=== PATIENT | female | born 1960 | race Caucasian/White ===

== ENCOUNTER 2020-07-28 17:12 | Inpatient (IN) | payer MEDICARE ==
[~2020-07-28] VITALS: Ht 165.1 cm; Wt 149.7 kg
[2020-07-28 17:44] LABS: BASOPHILS % 0.3 % (0.0-1.0); EOSINOPHILS # (AUTO) 0.1 (0.0-0.4); HEMATOCRIT 40.3 % (34.2-44.1); LYMPHOCYTES # (AUTO) 1.3 (1.0-3.2); LYMPHOCYTES % 14.2 % (18.0-39.1); MEAN CORPUSCULAR HEMOGLOBIN 31.6 pg (28-32); MEAN CORPUSCULAR HGB CONC 32.3 g/dL (31-35); MEAN CORPUSCULAR VOLUME 97.8 fL (81-99); MONOCYTES % 11.5 % (4.4-11.3); NEUTROPHILS # (AUTO) 6.3 (2.1-6.9); NEUTROPHILS % 72.1 % (38.7-80.0); PLATELET COUNT 198 x10e3/uL (140-360); RED BLOOD COUNT 4.12 x10e6/uL (3.6-5.1); RED CELL DISTRIBUTION WIDTH 15.5 % (11.7-14.4)
[2020-07-28] MEDS ORDERED: DEXAMETHASONE SOD PHOS 10 MG/1 ML VIAL IV ONE (18:00)
[2020-07-28 18:04] LABS: ALBUMIN 2.9 g/dL (3.5-5.0); ALBUMIN/GLOBULIN RATIO 0.7 (0.8-2.0); ANION GAP 15.9 mmol/L (8-16); CALCIUM 9.1 mg/dL (8.4-10.2); CREATININE, SERUM 0.95 mg/dL (0.57-1.11); POTASSIUM 3.9 mmol/L (3.5-5.1)
[2020-07-28] MEDS ORDERED: ACETAMINOPHEN 325 MG TAB PO ONE (18:30)
[2020-07-28] MEDS ORDERED: AZITHROMYCIN 500MG/NS 250 ML 250 ML IV STA (18:42)
[2020-07-28] MEDS ORDERED: CEFTRIAXONE SOD 1 GM/NS 50 ML 50 ML IV ONE ×2 (18:45→22:57)
[2020-07-28] MEDS ORDERED: LACTATED RINGER'S 1,000 ML INJ ONE (18:45)
[2020-07-28 22:07] LABS: CLARITY,URINE CLOUDY (CLEAR); COLOR,URINE YELLOW (YELLOW); KETONES,URINE NEGATIVE (NEGATIVE); LEUKOCYTE ESTERASE ,URINE NEGATIVE (NEGATIVE); NITRITE,URINE POSITIVE (NEGATIVE); PROTEIN,URINE DIPSTICK NEGATIVE (NEGATIVE); URINE UROBILINOGEN 0.2 mg/dL (0.2 - 1)
[2020-07-28 22:15] LABS: BACTERIA,URINE MODERATE /HPF; EPITHELIAL CELLS,URINE MODERATE /LPF
[2020-07-28] MEDS ORDERED: KETOROLAC TROMETHAMINE 30 MG/ML VIAL IV PRN (22:45)
[2020-07-28] MEDS ORDERED: AZITHROMYCIN 500MG/NS 250 ML 250 ML ONE (22:57)
[2020-07-28] MEDS ORDERED: LACTATED RINGER'S 1,000 ML ONE (22:58)
[2020-07-28] MEDS ORDERED: HYDRALAZINE HCL 20 MG/ML VIAL IV PRN (23:15)
[2020-07-28] MEDS ORDERED: ACETAMINOPHEN 325 MG TAB PO PRN (23:15)
[2020-07-28] MEDS ORDERED: BENZONATATE 100 MG CAP PO PRN (23:15)
[2020-07-28] MEDS ORDERED: DEXTROSE 50% SYRINGE 50 ML IV PRN (23:15)
[2020-07-28] MEDS ORDERED: ONDANSETRON HCL INJ 2MG/ML 2ML 2 MG/ML VIAL IV PRN (23:15)
[2020-07-29] VITALS (7 sets, daily range): BP systolic 139–180; BP diastolic 70–94
[2020-07-29 06:32] LABS: BASOPHILS % 0.3 % (0.0-1.0); HEMATOCRIT 44.2 % (34.2-44.1); HEMOGLOBIN 14.2 g/dL (12.0-16.0); LYMPHOCYTES # (AUTO) 0.9 (1.0-3.2); LYMPHOCYTES % 9.6 % (18.0-39.1); MEAN CORPUSCULAR HEMOGLOBIN 31.5 pg (28-32); MEAN CORPUSCULAR HGB CONC 32.1 g/dL (31-35); MONOCYTES # (AUTO) 0.5 (0.2-0.8); MONOCYTES % 5.2 % (4.4-11.3); NEUTROPHILS # (AUTO) 7.6 (2.1-6.9); NEUTROPHILS % 84.1 % (38.7-80.0); PLATELET COUNT 209 x10e3/uL (140-360); RED BLOOD COUNT 4.51 x10e6/uL (3.6-5.1); RED CELL DISTRIBUTION WIDTH 15.1 % (11.7-14.4)
[2020-07-29] MEDS ORDERED: HYDROCHLOROTHIA25 MG PO (06:39)
[2020-07-29] MEDS ORDERED: JARDIANCE10 MG PO (06:39)
[2020-07-29] MEDS ORDERED: METFORMIN HCL1000 MG PO (06:43)
[2020-07-29] MEDS ORDERED: TRAZODONE HCL100 MG PO (06:43)
[2020-07-29] MEDS ORDERED: PRAMIPEXOLE D0.25 MG PO (06:47)
[2020-07-29] MEDS ORDERED: METOPROLOL TART25 MG PO (06:47)
[2020-07-29] MEDS ORDERED: LEXAPRO20 MG PO (06:51)
[2020-07-29] MEDS ORDERED: LYRICA25 MG PO (06:51)
[2020-07-29] MEDS ORDERED: ATORVASTATIN CA20 MG PO (06:51)
[2020-07-29] MEDS ORDERED: ASPIRIN81 MG PO (06:56)
[2020-07-29] MEDS ORDERED: CENTURY PO (06:59)
[2020-07-29 07:01] LABS: ANION GAP 17.2 mmol/L (8-16); BLOOD UREA NITROGEN 21 mg/dL (7-26); BUN/CREATININE RATIO 23 (6-25); CALCIUM 9.4 mg/dL (8.4-10.2); CARBON DIOXIDE 26 mmol/L (22-29); CHLORIDE 98 mmol/L (98-107); CREATININE, SERUM 0.93 mg/dL (0.57-1.11); EST GLOMERULAR FILTRATION RATE > 60 ML/MIN (60-); GLUCOSE 238 mg/dL (74-118); POTASSIUM 4.2 mmol/L (3.5-5.1); SODIUM 137 mmol/L (136-145)
[2020-07-29] MEDS: INSULIN LISPRO 100 UNIT/1 ML 3ML VIAL SQ SCH ×4 (08:08→21:20)
[2020-07-29] MEDS: ESCITALOPRAM OXALATE 10 MG TAB PO SCH (09:51)
[2020-07-29] MEDS: METOPROLOL TARTRATE 25 MG TAB PO SCH ×2 (09:51→18:30)
[2020-07-29] MEDS: AZITHROMYCIN 500MG/NS 250 ML 250 ML IV SCH (09:51)
[2020-07-29] MEDS: POTASSIUM CHLORIDE 10MEQ EA PO SCH (09:51)
[2020-07-29] MEDS: FUROSEMIDE INJ 10 MG/ML 4 ML VIAL IV SCH (09:51)
[2020-07-29] MEDS: ASPIRIN 81 MG CHEW TAB PO SCH (09:51)
[2020-07-29] MEDS: MULTIVITAMINS/MINERALS TAB PO SCH (09:52)
[2020-07-29] MEDS ORDERED: SODIUM CHLORIDE 0.9% 250ML 250 ML ONE (10:22)
[2020-07-29] MEDS: CEFTRIAXONE SOD 1 GM/NS 50 ML 50 ML IV SCH (15:02)
[2020-07-29] MEDS: LISINOPRIL 20 MG TAB PO SCH (15:02)
[2020-07-29] MEDS: NON-FORMULARY MEDICATION (Metformin Hcl 1,000 MG) PO SCH (16:31)
[2020-07-29] MEDS: PREGABALIN 25 MG CAP PO SCH (18:30)
[2020-07-29] MEDS: PRAMIPEXOLE DIHYDROCHLORIDE 0.25 MG TAB PO SCH (21:40)
[2020-07-29] MEDS: ATORVASTATIN 20 MG TAB PO SCH (21:40)
[2020-07-30] VITALS (9 sets, daily range): BP systolic 109–167; BP diastolic 48–86
[2020-07-30] MEDS: TRAZODONE HCL 50 MG TAB PO PRN ×2 (01:06→23:00)
[2020-07-30 06:22] LABS: BASOPHILS % 0.4 % (0.0-1.0); EOSINOPHILS # (AUTO) 0.1 (0.0-0.4); HEMATOCRIT 45.7 % (34.2-44.1); HEMOGLOBIN 14.8 g/dL (12.0-16.0); LYMPHOCYTES # (AUTO) 1.5 (1.0-3.2); LYMPHOCYTES % 15.8 % (18.0-39.1); MEAN CORPUSCULAR HEMOGLOBIN 31.7 pg (28-32); MEAN CORPUSCULAR HGB CONC 32.4 g/dL (31-35); MEAN CORPUSCULAR VOLUME 97.9 fL (81-99); MONOCYTES # (AUTO) 0.9 (0.2-0.8); MONOCYTES % 8.9 % (4.4-11.3); NEUTROPHILS % 72.8 % (38.7-80.0); PLATELET COUNT 264 x10e3/uL (140-360); RED BLOOD COUNT 4.67 x10e6/uL (3.6-5.1); RED CELL DISTRIBUTION WIDTH 15.2 % (11.7-14.4)
[2020-07-30 07:15] LABS: ANION GAP 16.2 mmol/L (8-16); CALCIUM 9.8 mg/dL (8.4-10.2); CREATININE, SERUM 1.08 mg/dL (0.57-1.11); POTASSIUM 4.2 mmol/L (3.5-5.1)
[2020-07-30] MEDS: NON-FORMULARY MEDICATION (Metformin Hcl 1,000 MG) PO SCH ×2 (08:00→16:54)
[2020-07-30] MEDS: INSULIN LISPRO 100 UNIT/1 ML 3ML VIAL SQ SCH ×4 (08:25→20:41)
[2020-07-30] MEDS: PREGABALIN 25 MG CAP PO SCH ×2 (09:00→16:54)
[2020-07-30] MEDS: AZITHROMYCIN 500MG/NS 250 ML 250 ML IV SCH (09:17)
[2020-07-30] MEDS: ASPIRIN 81 MG CHEW TAB PO SCH (09:22)
[2020-07-30] MEDS: ESCITALOPRAM OXALATE 10 MG TAB PO SCH (09:23)
[2020-07-30] MEDS: POTASSIUM CHLORIDE 10MEQ EA PO SCH (09:23)
[2020-07-30] MEDS: MULTIVITAMINS/MINERALS TAB PO SCH (09:24)
[2020-07-30] MEDS: LISINOPRIL 20 MG TAB PO SCH (09:24)
[2020-07-30] MEDS: METOPROLOL TARTRATE 25 MG TAB PO SCH ×2 (09:24→16:54)
[2020-07-30] MEDS: FUROSEMIDE INJ 10 MG/ML 4 ML VIAL IV SCH (09:26)
[2020-07-30] MEDS ORDERED: INSULIN GLARGINE 100 UNITS/ML VIAL SQ ONE (11:15)
[2020-07-30] MEDS: CEFTRIAXONE SOD 1 GM/NS 50 ML 50 ML IV SCH (12:18)
[2020-07-30] MEDS: PRAMIPEXOLE DIHYDROCHLORIDE 0.25 MG TAB PO SCH (20:38)
[2020-07-30] MEDS: ATORVASTATIN 20 MG TAB PO SCH (20:38)
[2020-07-31 04:57] VITALS: BP 140/68
[2020-07-31] MEDS: AZITHROMYCIN 500MG/NS 250 ML 250 ML IV SCH (07:00)
[2020-07-31] MEDS ORDERED: INSULIN GLARGINE 100 UNITS/ML VIAL SQ SCH (07:30)
[2020-07-31] MEDS: NON-FORMULARY MEDICATION (Metformin Hcl 1,000 MG) PO SCH (08:00)
[2020-07-31] MEDS: CEFTRIAXONE SOD 1 GM/NS 50 ML 50 ML IV SCH (08:00)
[2020-07-31 08:16] VITALS: BP 135/48
[2020-07-31] MEDS: LISINOPRIL 20 MG TAB PO SCH (09:00)
[2020-07-31] MEDS: METOPROLOL TARTRATE 25 MG TAB PO SCH (09:00)
[2020-07-31] MEDS: FUROSEMIDE INJ 10 MG/ML 4 ML VIAL IV SCH (09:00)
[2020-07-31 09:04] VITALS: BP 135/48
[2020-07-31] MEDS: ASPIRIN 81 MG CHEW TAB PO SCH (09:23)
[2020-07-31] MEDS: MULTIVITAMINS/MINERALS TAB PO SCH (09:24)
[2020-07-31] MEDS: PREGABALIN 25 MG CAP PO SCH (09:24)
[2020-07-31] MEDS: ESCITALOPRAM OXALATE 10 MG TAB PO SCH (09:25)
[2020-07-31] MEDS: POTASSIUM CHLORIDE 10MEQ EA PO SCH (09:26)
[2020-07-31] MEDS ORDERED: LASIX40 MG PO (09:49)
[2020-07-31] MEDS ORDERED: AUGMENTIN 875-1 EACH PO (09:50)
[2020-07-31] MEDS ORDERED: POTASSIUM99 M1 (09:52)
[2020-07-31] MEDS ORDERED: K DUR10 MEQ PO (09:52)
[2020-07-31] MEDS ORDERED: TESSALON PERLE100 MG PO (09:55)
[2020-07-31] MEDS ORDERED: ONDANSETRON2 MG/1 ML PO (09:55)
[2020-07-31] MEDS: INSULIN LISPRO 100 UNIT/1 ML 3ML VIAL SQ SCH (11:04)
== END 2020-07-31 10:30 | disposition home or self-care (01) | DRG 291 ==
LOC: EDBD 17:17 → ER 17:17 → ERHOLD 20:00 → MED/SURG3 07-29 01:37
PROVIDERS: ADMIT Internal Medicine; ATTEND Internal Medicine
DX: I11.0 Hypertensive heart disease with heart failure (principal); J15.9 Unspecified bacterial pneumonia; Z68.43 Body mass index [BMI] 50.0-59.9, adult; J84.9 Interstitial pulmonary disease, unspecified; I50.33 Acute on chronic diastolic (congestive) heart failure; E66.01 Morbid (severe) obesity due to excess calories; E78.5 Hyperlipidemia, unspecified; E11.40 Type 2 diabetes mellitus with diabetic neuropathy, unspecified; F41.9 Anxiety disorder, unspecified; F32.9 Major depressive disorder, single episode, unspecified; G47.33 Obstructive sleep apnea (adult) (pediatric); Z20.822 Contact with and (suspected) exposure to COVID-19; R60.0 Localized edema; I35.8 Other nonrheumatic aortic valve disorders; Z79.4 Long term (current) use of insulin
CPT/HCPCS: 36415; 70450; 71045; 71250; 80048; 80053; 81001; 82948; 83605; 83880; 84443; 84484; 85025; 87040; 87400; 93005; 93306; 96360; 99284; J0456; J0696; J1100; J1815; J1940; J7050; J7121; U0002

== ENCOUNTER → 2020-11-16 | Outpatient (CLI) | payer MEDICARE ==
[~2020-11-16] MED LIST: ASPIRIN81 MG PO; ATORVASTATIN CA20 MG PO; AUGMENTIN 875-1 EACH PO; CENTURY PO; HYDROCHLOROTHIA25 MG PO; JARDIANCE10 MG PO; K DUR10 MEQ PO; LASIX40 MG PO; LEXAPRO20 MG PO; LYRICA25 MG PO; METFORMIN HCL1000 MG PO; METOPROLOL TART25 MG PO; ONDANSETRON2 MG/1 ML PO; POTASSIUM99 M1; PRAMIPEXOLE D0.25 MG PO; TESSALON PERLE100 MG PO; TRAZODONE HCL100 MG PO
== END ==
LOC: MAMMO 12:48
PROVIDERS: ATTEND Internal Medicine
DX: Z12.31 Encounter for screening mammogram for malignant neoplasm of breast (principal); M81.0 Age-related osteoporosis without current pathological fracture
CPT/HCPCS: 77067; 77080

== ENCOUNTER 2021-07-05 19:53 | Emergency (ER) | payer MEDICARE ==
[~2021-07-05] VITALS: Ht 165.1 cm; Wt 149.7 kg
[2021-07-05] MEDS ORDERED: SODIUM CHLORIDE 0.9% 1000ML 1,000 ML IV STA (20:04)
[2021-07-05 20:18] LABS: BASOPHILS # (AUTO) 0.1 (0.0-0.1); BASOPHILS % 0.8 % (0.0-1.0); EOSINOPHILS # (AUTO) 0.1 (0.0-0.4); EOSINOPHILS % 1.6 % (0.0-6.0); HEMATOCRIT 46.9 % (34.2-44.1); HEMOGLOBIN 14.8 g/dL (12.0-16.0); LYMPHOCYTES # (AUTO) 1.4 (1.0-3.2); LYMPHOCYTES % 21.5 % (18.0-39.1); MEAN CORPUSCULAR HEMOGLOBIN 31.5 pg (28-32); MEAN CORPUSCULAR HGB CONC 31.6 g/dL (31-35); MEAN CORPUSCULAR VOLUME 99.8 fL (81-99); MONOCYTES # (AUTO) 0.9 (0.2-0.8); MONOCYTES % 13.4 % (4.4-11.3); NEUTROPHILS % 62.1 % (38.7-80.0); PLATELET COUNT 154 x10e3/uL (140-360); RED CELL DISTRIBUTION WIDTH 14.9 % (11.7-14.4)
[2021-07-05 20:34] LABS: ALBUMIN 3.8 g/dL (3.5-5.0); ALBUMIN/GLOBULIN RATIO 0.9 (0.8-2.0); ANION GAP 17.8 mmol/L (8-16); CALCIUM 9.4 mg/dL (8.4-10.2); CREATININE, SERUM 1.36 mg/dL (0.57-1.11); POTASSIUM 4.8 mmol/L (3.5-5.1)
[2021-07-05 20:50] LABS: CREATINE KINASE MB 3.1 ng/mL (0-5.0)
[2021-07-05] MEDS ORDERED: INSULIN REGULAR, HUMAN 100 UNIT/1 ML IV STA (21:06)
[2021-07-05] MEDS ORDERED: ACETAMINOPHEN 325 MG TAB PO ONE (21:30)
[2021-07-05 22:19] LABS: CLARITY,URINE CLEAR (CLEAR); COLOR,URINE YELLOW (YELLOW); KETONES,URINE NEGATIVE (NEGATIVE); LEUKOCYTE ESTERASE ,URINE NEGATIVE (NEGATIVE); NITRITE,URINE NEGATIVE (NEGATIVE); PROTEIN,URINE DIPSTICK NEGATIVE (NEGATIVE); URINE UROBILINOGEN 0.2 mg/dL (0.2 - 1)
[2021-07-05 23:31] VITALS: BP 129/84
== END 2021-07-05 23:36 | disposition home or self-care (01) ==
LOC: ER 19:57
DX: E11.65 Type 2 diabetes mellitus with hyperglycemia (principal); E11.40 Type 2 diabetes mellitus with diabetic neuropathy, unspecified; I10 Essential (primary) hypertension; E78.5 Hyperlipidemia, unspecified; E66.01 Morbid (severe) obesity due to excess calories
CPT/HCPCS: 36415; 80053; 81001; 82550; 82553; 82948; 84484; 85025; 93005; 99284; J1817; J7030

== ENCOUNTER 2021-11-04 18:49 | Emergency (ER) | payer MEDICARE ==
[~2021-11-04] VITALS: Ht 165.1 cm; Wt 149.7 kg
[2021-11-04 19:43] LABS: BASOPHILS % 0.7 % (0.0-1.0); EOSINOPHILS # (AUTO) 0.1 (0.0-0.4); EOSINOPHILS % 1.5 % (0.0-6.0); HEMATOCRIT 44.8 % (34.2-44.1); LYMPHOCYTES # (AUTO) 1.3 (1.0-3.2); LYMPHOCYTES % 22.2 % (18.0-39.1); MEAN CORPUSCULAR HGB CONC 33.5 g/dL (31-35); MEAN CORPUSCULAR VOLUME 98.7 fL (81-99); MONOCYTES # (AUTO) 0.8 (0.2-0.8); MONOCYTES % 13.2 % (4.4-11.3); NEUTROPHILS # (AUTO) 3.7 (2.1-6.9); NEUTROPHILS % 61.4 % (38.7-80.0); PLATELET COUNT 173 x10e3/uL (140-360); RED BLOOD COUNT 4.54 x10e6/uL (3.6-5.1)
[2021-11-04] MEDS ORDERED: Vancomycin IV 1 GM in SODIUM CHLORIDE 0.9% 250ML 250 ML IV ONE (20:00)
[2021-11-04 20:05] LABS: ALBUMIN 3.3 g/dL (3.5-5.0); ALBUMIN/GLOBULIN RATIO 0.7 (0.8-2.0); ANION GAP 16.9 mmol/L (8-16); CALCIUM 9.5 mg/dL (8.4-10.2); CREATININE, SERUM 1.16 mg/dL (0.57-1.11); POTASSIUM 3.9 mmol/L (3.5-5.1)
[2021-11-04] MEDS ORDERED: CLEOCIN HCL300 MG PO (20:06)
[2021-11-04] MEDS ORDERED: CEFEPIME 1 GM in SODIUM CHLORIDE 0.9% 50ML 50 ML IV SCH (21:00)
[2021-11-04] MEDS ORDERED: ONDANSETRON HCL INJ 2MG/ML 2ML 2 MG/ML VIAL IV STA (21:13)
[2021-11-04 21:57] VITALS: BP 121/64
== END 2021-11-04 21:47 | disposition home or self-care (01) ==
LOC: ER 18:58
DX: L03.116 Cellulitis of left lower limb (principal); I89.0 Lymphedema, not elsewhere classified; E11.65 Type 2 diabetes mellitus with hyperglycemia; I10 Essential (primary) hypertension; E78.5 Hyperlipidemia, unspecified; E66.01 Morbid (severe) obesity due to excess calories
CPT/HCPCS: 36415; 80053; 85025; 87040; 99283; J0692; J2405; J3370; J7050

== ENCOUNTER 2021-12-27 19:13 | Emergency (ER) | payer MEDICARE ==
[~2021-12-27] VITALS: Ht 165.1 cm; Wt 149.7 kg
[~2021-12-27 19:13] MED LIST changes: +CLEOCIN HCL300 MG PO
[2021-12-27 19:41] LABS: BASOPHILS # (AUTO) 0.1 (0.0-0.1); BASOPHILS % 0.8 % (0.0-1.0); EOSINOPHILS # (AUTO) 0.1 (0.0-0.4); EOSINOPHILS % 2.3 % (0.0-6.0); HEMATOCRIT 43.7 % (34.2-44.1); HEMOGLOBIN 14.1 g/dL (12.0-16.0); LYMPHOCYTES # (AUTO) 0.9 (1.0-3.2); LYMPHOCYTES % 15.2 % (18.0-39.1); MEAN CORPUSCULAR HEMOGLOBIN 32.3 pg (28-32); MEAN CORPUSCULAR HGB CONC 32.3 g/dL (31-35); MONOCYTES # (AUTO) 0.9 (0.2-0.8); MONOCYTES % 14.3 % (4.4-11.3); NEUTROPHILS # (AUTO) 4.1 (2.1-6.9); NEUTROPHILS % 66.7 % (38.7-80.0); PLATELET COUNT 159 x10e3/uL (140-360); RED BLOOD COUNT 4.37 x10e6/uL (3.6-5.1); RED CELL DISTRIBUTION WIDTH 14.9 % (11.7-14.4)
[2021-12-27 20:01] LABS: ALBUMIN 3.1 g/dL (3.5-5.0); ALBUMIN/GLOBULIN RATIO 0.7 (0.8-2.0); ANION GAP 20.7 mmol/L (8-16); CALCIUM 9.3 mg/dL (8.4-10.2); CREATININE, SERUM 1.29 mg/dL (0.57-1.11); POTASSIUM 3.7 mmol/L (3.5-5.1)
[2021-12-27 20:40] LABS: CLARITY,URINE CLOUDY (CLEAR); COLOR,URINE YELLOW (YELLOW); LEUKOCYTE ESTERASE ,URINE NEGATIVE (NEGATIVE)
[2021-12-27 20:41] LABS: KETONES,URINE NEGATIVE (NEGATIVE); NITRITE,URINE POSITIVE (NEGATIVE); PROTEIN,URINE DIPSTICK NEGATIVE (NEGATIVE); URINE UROBILINOGEN 0.2 mg/dL (0.2 - 1)
[2021-12-27 20:46] LABS: BACTERIA,URINE MANY /HPF; WBC,URINE (MAN) >50 /HPF (0-5)
[2021-12-27 20:47] LABS: EPITHELIAL CELLS,URINE MODERATE /LPF
[2021-12-27 21:31] VITALS: BP 141/66
== END 2021-12-27 21:34 | disposition home or self-care (01) ==
LOC: ER 20:08
DX: R41.3 Other amnesia (principal); N39.0 Urinary tract infection, site not specified; R53.1 Weakness; I89.0 Lymphedema, not elsewhere classified; Z91.81 History of falling; E11.65 Type 2 diabetes mellitus with hyperglycemia; I10 Essential (primary) hypertension; E78.5 Hyperlipidemia, unspecified; E66.01 Morbid (severe) obesity due to excess calories; R94.31 Abnormal electrocardiogram [ECG] [EKG]
CPT/HCPCS: 36415; 70450; 71045; 80053; 81001; 82550; 82553; 83880; 84484; 85025; 93005; 99284

== ENCOUNTER 2022-01-02 14:43 | Emergency (ER) | payer MEDICARE, OTHER ==
[~2022-01-02] VITALS: Ht 165.1 cm; Wt 149.7 kg
[2022-01-02] MEDS ORDERED: TETANUS/DIPHTHERIA TOX ADULT 0.5 ML SYR IM ONE (15:30)
[2022-01-02] MEDS ORDERED: ACETAMINOPHEN/CODEINE 300MG - 30MG TAB PO ONE (15:40)
[2022-01-02 18:50] VITALS: BP 137/66
== END 2022-01-02 18:58 | disposition home or self-care (01) ==
LOC: ER 14:50
DX: S80.811A Abrasion, right lower leg, initial encounter (principal); W01.0XXA Fall on same level from slipping, tripping and stumbling without subsequent striking against object, initial encounter; Y93.01 Activity, walking, marching and hiking; Y92.098 Other place in other non-institutional residence as the place of occurrence of the external cause; E11.40 Type 2 diabetes mellitus with diabetic neuropathy, unspecified; I10 Essential (primary) hypertension; E78.5 Hyperlipidemia, unspecified; E66.01 Morbid (severe) obesity due to excess calories
CPT/HCPCS: 90471; 90714; 94799; 99283

== ENCOUNTER → 2022-01-25 | Day surgery (SDC) | payer MEDICARE ==
[~2022-01-25] MED LIST changes: +OR PHACO EYE KIT ONE; +PREOP PHACO EYE KIT ONE; +TYLENOL #3 PO
[2022-01-25 13:00] VITALS: BP 135/61
== END | disposition home or self-care (01) ==
LOC: OR 08:59
PROVIDERS: ATTEND Ophthalmology
DX: H25.12 Age-related nuclear cataract, left eye (principal); G47.33 Obstructive sleep apnea (adult) (pediatric); E11.9 Type 2 diabetes mellitus without complications; I11.0 Hypertensive heart disease with heart failure; I50.9 Heart failure, unspecified; E78.5 Hyperlipidemia, unspecified; G25.81 Restless legs syndrome; R60.0 Localized edema; R41.3 Other amnesia; E66.01 Morbid (severe) obesity due to excess calories; F41.9 Anxiety disorder, unspecified; F32.A Depression, unspecified; Z88.1 Allergy status to other antibiotic agents; Z01.812 Encounter for preprocedural laboratory examination; Z20.822 Contact with and (suspected) exposure to COVID-19; Z79.82 Long term (current) use of aspirin; Z79.84 Long term (current) use of oral hypoglycemic drugs; Z79.899 Other long term (current) drug therapy; Z99.81 Dependence on supplemental oxygen; Z68.43 Body mass index [BMI] 50.0-59.9, adult; Z87.01 Personal history of pneumonia (recurrent); Z91.81 History of falling; Z87.891 Personal history of nicotine dependence
CPT/HCPCS: 0223U; 36415 ×2; 66984; 82948; V2632

== ENCOUNTER 2022-02-01 10:08 | Inpatient (IN) | payer MEDICARE ==
[~2022-02-01] VITALS: Ht 165.1 cm; Wt 151.1 kg
[2022-02-01] VITALS (9 sets, daily range): BP systolic 126–165; BP diastolic 37–130
[~2022-02-01 10:08] MED LIST changes: -OR PHACO EYE KIT ONE; -PREOP PHACO EYE KIT ONE
[2022-02-01 11:11] LABS: BASOPHILS # (AUTO) 0.1 (0.0-0.1); BASOPHILS % 0.7 % (0.0-1.0); EOSINOPHILS # (AUTO) 0.1 (0.0-0.4); EOSINOPHILS % 1.1 % (0.0-6.0); HEMATOCRIT 46.3 % (34.2-44.1); HEMOGLOBIN 14.8 g/dL (12.0-16.0); LYMPHOCYTES # (AUTO) 0.9 (1.0-3.2); LYMPHOCYTES % 11.7 % (18.0-39.1); MEAN CORPUSCULAR HEMOGLOBIN 33.4 pg (28-32); MEAN CORPUSCULAR VOLUME 104.5 fL (81-99); NEUTROPHILS # (AUTO) 5.9 (2.1-6.9); NEUTROPHILS % 73.8 % (38.7-80.0); PLATELET COUNT 205 x10e3/uL (140-360); RED BLOOD COUNT 4.43 x10e6/uL (3.6-5.1)
[2022-02-01 11:23] LABS: INR 0.85; PROTHROMBIN TIME 12.4 seconds (11.9-14.5)
[2022-02-01 11:24] LABS: PARTIAL THROMBOPLASTIN TIME 32.4 seconds (23.8-35.5)
[2022-02-01] MEDS ORDERED: ONDANSETRON HCL INJ 2MG/ML 2ML 2 MG/ML VIAL IV PRN ×2 (11:30→15:15)
[2022-02-01] MEDS ORDERED: ACETAMINOPHEN 325 MG TAB PO ONE (11:30)
[2022-02-01 11:34] LABS: ALBUMIN 3.1 g/dL (3.5-5.0); ALBUMIN/GLOBULIN RATIO 0.5 (0.8-2.0); ANION GAP 22.3 mmol/L (8-16); CALCIUM 9.5 mg/dL (8.4-10.2); POTASSIUM 4.3 mmol/L (3.5-5.1)
[2022-02-01 11:41] LABS: CREATINE KINASE MB 3.7 ng/mL (0-5.0)
[2022-02-01] MEDS ORDERED: ACETAMINOPHEN 1000 MG/100 ML IV STA (11:41)
[2022-02-01 11:58] LABS: ABG HCO3 25 mmol/L (22-26); ABG PCO2 47 mmHg (35-45); ABG PH 7.34 (7.35-7.45); ABG PO2 62 mmHg (80-105)
[2022-02-01 11:59] LABS: ABG TCO2 27
[2022-02-01] MEDS ORDERED: INSULIN REGULAR, HUMAN 100 UNIT/1 ML SQ ONE (12:00)
[2022-02-01] MEDS ORDERED: ALBUTEROL/IPRATROPIUM 3 ML NEB NEB ONE (12:15)
[2022-02-01] MEDS ORDERED: METHYLPREDNISOLONE SOD SUCC 125 MG/2ML VIAL IV SCH ×2 (12:30→21:00)
[2022-02-01 13:19] LABS: CLARITY,URINE CLOUDY (CLEAR); COLOR,URINE YELLOW (YELLOW); LEUKOCYTE ESTERASE ,URINE TRACE (NEGATIVE)
[2022-02-01 13:20] LABS: KETONES,URINE 1+ (NEGATIVE); NITRITE,URINE POSITIVE (NEGATIVE); PROTEIN,URINE DIPSTICK 1+ (NEGATIVE); URINE UROBILINOGEN 0.2 mg/dL (0.2 - 1)
[2022-02-01 13:36] LABS: BACTERIA,URINE MANY /HPF
[2022-02-01 13:37] LABS: EPITHELIAL CELLS,URINE MANY /LPF; WBC,URINE (MAN) 21-50 /HPF (0-5)
[2022-02-01] MEDS ORDERED: DEXTROSE 50% SYRINGE 50 ML IV PRN (14:45)
[2022-02-01] MEDS ORDERED: SODIUM CHLORIDE FLUSH 10 ML SYR INJ PRN (15:15)
[2022-02-01] MEDS ORDERED: FUROSEMIDE INJ 10 MG/ML 4 ML VIAL IV ONE (15:15)
[2022-02-01] MEDS ORDERED: ASPIRIN 81 MG CHEW TAB PO ONE (15:15)
[2022-02-01] MEDS: FUROSEMIDE INJ 10 MG/ML 4 ML VIAL IV SCH (15:47)
[2022-02-01] MEDS: ALBUTEROL/IPRATROPIUM 3 ML NEB NEB SCH ×3 (15:47→23:05)
[2022-02-01] MEDS: ACETAMINOPHEN 325 MG TAB PO PRN (19:39)
[2022-02-01 19:41] LABS: CREATINE KINASE MB 8.5 ng/mL (0-5.0)
[2022-02-01] MEDS: METOPROLOL TARTRATE 25 MG TAB PO SCH (19:41)
[2022-02-01] MEDS: INSULIN REGULAR, HUMAN 100 UNIT/1 ML SQ SCH ×2 (19:45→21:49)
[2022-02-01] MEDS ORDERED: HUMULIN R500 UNIT/2 (21:27)
[2022-02-01] MEDS ORDERED: TRULICITY1.5 MG/0.5 (21:27)
[2022-02-01] MEDS ORDERED: NOVOLIN N100 UNIT/1 (21:27)
[2022-02-01] MEDS ORDERED: INSULIN GLARGINE 100 UNITS/ML VIAL SQ ONE (21:30)
[2022-02-01] MEDS: ATORVASTATIN 20 MG TAB PO SCH (21:36)
[2022-02-02] VITALS (23 sets, daily range): BP systolic 80–164; BP diastolic 58–109
[2022-02-02 00:01] LABS: CREATINE KINASE MB 8.2 ng/mL (0-5.0)
[2022-02-02] MEDS: TRAZODONE HCL 50 MG TAB PO PRN ×2 (01:02→23:40)
[2022-02-02] MEDS: ACETAMINOPHEN 325 MG TAB PO PRN ×2 (01:03→08:25)
[2022-02-02] MEDS: ALBUTEROL/IPRATROPIUM 3 ML NEB NEB SCH ×6 (03:05→23:45)
[2022-02-02 05:05] LABS: BASOPHILS % 0.3 % (0.0-1.0); HEMATOCRIT 40.2 % (34.2-44.1); LYMPHOCYTES # (AUTO) 0.6 (1.0-3.2); LYMPHOCYTES % 6.8 % (18.0-39.1); MEAN CORPUSCULAR HEMOGLOBIN 36.9 pg (28-32); MEAN CORPUSCULAR HGB CONC 34.8 g/dL (31-35); MEAN CORPUSCULAR VOLUME 106.1 fL (81-99); MONOCYTES # (AUTO) 0.3 (0.2-0.8); MONOCYTES % 3.8 % (4.4-11.3); NEUTROPHILS # (AUTO) 7.8 (2.1-6.9); NEUTROPHILS % 88.4 % (38.7-80.0); PLATELET COUNT 200 x10e3/uL (140-360); RED BLOOD COUNT 3.79 x10e6/uL (3.6-5.1); RED CELL DISTRIBUTION WIDTH 17.2 % (11.7-14.4)
[2022-02-02 05:28] LABS: ANION GAP 23.5 mmol/L (8-16); CALCIUM 9.5 mg/dL (8.4-10.2); CREATININE, SERUM 1.17 mg/dL (0.57-1.11); POTASSIUM 4.5 mmol/L (3.5-5.1)
[2022-02-02] MEDS: INSULIN REGULAR, HUMAN 100 UNIT/1 ML SQ SCH ×2 (08:10→11:37)
[2022-02-02 08:44] LABS: CREATINE KINASE MB 8.4 ng/mL (0-5.0)
[2022-02-02] MEDS ORDERED: PREGABALIN 25 MG CAP PO SCH (09:00)
[2022-02-02] MEDS: ASPIRIN 81 MG CHEW TAB PO SCH (09:52)
[2022-02-02] MEDS: METOPROLOL TARTRATE 25 MG TAB PO SCH ×2 (09:53→17:28)
[2022-02-02] MEDS: FUROSEMIDE INJ 10 MG/ML 4 ML VIAL IV SCH (09:54)
[2022-02-02] MEDS ORDERED: FUROSEMIDE 40 MG TAB PO SCH (10:00)
[2022-02-02] MEDS ORDERED: HYDROCHLOROTHIAZIDE 25 MG TAB PO SCH (10:00)
[2022-02-02] MEDS: PREGABALIN 50 MG CAP PO SCH ×2 (10:26→17:27)
[2022-02-02] MEDS: ESCITALOPRAM OXALATE 10 MG TAB PO SCH (10:27)
[2022-02-02] MEDS: POTASSIUM CHLORIDE 10MEQ EA PO SCH (10:33)
[2022-02-02] MEDS ORDERED: DEXTROSE 50% SYRINGE 50 ML IV PRN (15:15)
[2022-02-02] MEDS: INSULIN LISPRO 100 UNIT/1 ML 3ML VIAL SQ SCH ×3 (17:15→21:43)
[2022-02-02] MEDS: INSULIN GLARGINE 100 UNITS/ML VIAL SQ SCH (17:22)
[2022-02-02] MEDS ORDERED: PRAMIPEXOLE DIHYDROCHLORIDE 0.25 MG TAB PO SCH (21:00)
[2022-02-02] MEDS: MAGNESIUM HYDROXIDE 30 ML UDC PO PRN (21:00)
[2022-02-02] MEDS: ATORVASTATIN 20 MG TAB PO SCH (21:19)
[2022-02-02] MEDS: METHYLPREDNISOLONE SOD SUCC 40 MG/ML VIAL 1ML IV SCH (21:19)
[2022-02-02] MEDS: PRAMIPEXOLE DIHYDROCHLORIDE 1 MG TAB PO SCH (21:29)
[2022-02-03] VITALS (24 sets, daily range): BP systolic 112–173; BP diastolic 55–130
[2022-02-03] MEDS: ALBUTEROL/IPRATROPIUM 3 ML NEB NEB SCH ×6 (02:35→23:20)
[2022-02-03] MEDS: ACETAMINOPHEN/CODEINE 300MG - 30MG TAB PO PRN (04:27)
[2022-02-03] MEDS: EMPAGLIFLOZIN 10 MG TABLET PO SCH (06:08)
[2022-02-03] MEDS: INSULIN LISPRO 100 UNIT/1 ML 3ML VIAL SQ SCH ×7 (07:35→21:27)
[2022-02-03] MEDS: INSULIN GLARGINE 100 UNITS/ML VIAL SQ SCH ×2 (07:36→16:19)
[2022-02-03] MEDS: METHYLPREDNISOLONE SOD SUCC 40 MG/ML VIAL 1ML IV SCH (08:30)
[2022-02-03] MEDS: FUROSEMIDE INJ 10 MG/ML 4 ML VIAL IV SCH (08:30)
[2022-02-03] MEDS: POTASSIUM CHLORIDE 10MEQ EA PO SCH (08:31)
[2022-02-03] MEDS: ESCITALOPRAM OXALATE 10 MG TAB PO SCH (08:31)
[2022-02-03] MEDS: PREGABALIN 50 MG CAP PO SCH ×2 (08:31→16:16)
[2022-02-03] MEDS: ASPIRIN 81 MG CHEW TAB PO SCH (08:32)
[2022-02-03] MEDS: METOPROLOL TARTRATE 25 MG TAB PO SCH ×2 (08:32→16:17)
[2022-02-03 11:28] LABS: BASOPHILS % 0.2 % (0.0-1.0); HEMATOCRIT 41.2 % (34.2-44.1); HEMOGLOBIN 13.4 g/dL (12.0-16.0); LYMPHOCYTES # (AUTO) 0.5 (1.0-3.2); LYMPHOCYTES % 4.1 % (18.0-39.1); MEAN CORPUSCULAR HEMOGLOBIN 32.5 pg (28-32); MEAN CORPUSCULAR HGB CONC 32.5 g/dL (31-35); MONOCYTES # (AUTO) 0.7 (0.2-0.8); MONOCYTES % 5.9 % (4.4-11.3); NEUTROPHILS # (AUTO) 10.3 (2.1-6.9); NEUTROPHILS % 88.9 % (38.7-80.0); PLATELET COUNT 228 x10e3/uL (140-360); RED BLOOD COUNT 4.12 x10e6/uL (3.6-5.1)
[2022-02-03] MEDS: MAGNESIUM HYDROXIDE 30 ML UDC PO PRN (11:29)
[2022-02-03 11:53] LABS: ALBUMIN 2.6 g/dL (3.5-5.0); ALBUMIN/GLOBULIN RATIO 0.5 (0.8-2.0); ANION GAP 21.2 mmol/L (8-16); CALCIUM 9.1 mg/dL (8.4-10.2); CREATININE, SERUM 1.05 mg/dL (0.57-1.11); POTASSIUM 5.2 mmol/L (3.5-5.1)
[2022-02-03] MEDS: PRAMIPEXOLE DIHYDROCHLORIDE 1 MG TAB PO SCH (21:24)
[2022-02-03] MEDS: TRAZODONE HCL 50 MG TAB PO PRN (21:24)
[2022-02-03] MEDS: ATORVASTATIN 20 MG TAB PO SCH (21:26)
[2022-02-04] VITALS (15 sets, daily range): BP systolic 84–156; BP diastolic 50–74
[2022-02-04] MEDS: ALBUTEROL/IPRATROPIUM 3 ML NEB NEB SCH ×6 (03:15→23:45)
[2022-02-04] MEDS: EMPAGLIFLOZIN 10 MG TABLET PO SCH (06:19)
[2022-02-04 07:08] LABS: BASOPHILS % 0.1 % (0.0-1.0); EOSINOPHILS % 0.2 % (0.0-6.0); HEMATOCRIT 41.5 % (34.2-44.1); HEMOGLOBIN 13.3 g/dL (12.0-16.0); LYMPHOCYTES # (AUTO) 0.8 (1.0-3.2); MEAN CORPUSCULAR HEMOGLOBIN 31.9 pg (28-32); MEAN CORPUSCULAR VOLUME 99.5 fL (81-99); MONOCYTES # (AUTO) 0.8 (0.2-0.8); MONOCYTES % 9.1 % (4.4-11.3); NEUTROPHILS # (AUTO) 7.5 (2.1-6.9); NEUTROPHILS % 81.1 % (38.7-80.0); PLATELET COUNT 206 x10e3/uL (140-360); RED BLOOD COUNT 4.17 x10e6/uL (3.6-5.1)
[2022-02-04 07:33] LABS: ALBUMIN 2.8 g/dL (3.5-5.0); ALBUMIN/GLOBULIN RATIO 0.6 (0.8-2.0); ANION GAP 16.3 mmol/L (8-16); CALCIUM 9.5 mg/dL (8.4-10.2); CREATININE, SERUM 0.87 mg/dL (0.57-1.11); POTASSIUM 4.3 mmol/L (3.5-5.1)
[2022-02-04] MEDS: PREGABALIN 50 MG CAP PO SCH ×2 (08:38→16:50)
[2022-02-04] MEDS: ESCITALOPRAM OXALATE 10 MG TAB PO SCH (08:38)
[2022-02-04] MEDS: ASPIRIN 81 MG CHEW TAB PO SCH (08:39)
[2022-02-04] MEDS: POTASSIUM CHLORIDE 10MEQ EA PO SCH (08:40)
[2022-02-04] MEDS: FUROSEMIDE INJ 10 MG/ML 4 ML VIAL IV SCH (08:40)
[2022-02-04] MEDS: METHYLPREDNISOLONE SOD SUCC 40 MG/ML VIAL 1ML IV SCH (08:41)
[2022-02-04] MEDS: INSULIN LISPRO 100 UNIT/1 ML 3ML VIAL SQ SCH ×7 (08:44→21:24)
[2022-02-04] MEDS: INSULIN GLARGINE 100 UNITS/ML VIAL SQ SCH ×2 (08:46→17:21)
[2022-02-04] MEDS: ACETAMINOPHEN/CODEINE 300MG - 30MG TAB PO PRN (09:00)
[2022-02-04] MEDS: METOPROLOL TARTRATE 25 MG TAB PO SCH ×2 (09:52→16:50)
[2022-02-04] MEDS ORDERED: INSULIN LISPRO 100 UNIT/1 ML 3ML VIAL SQ ONE (11:45)
[2022-02-04] MEDS: ATORVASTATIN 20 MG TAB PO SCH (21:10)
[2022-02-04] MEDS: PRAMIPEXOLE DIHYDROCHLORIDE 1 MG TAB PO SCH (21:10)
[2022-02-04] MEDS: TRAZODONE HCL 50 MG TAB PO PRN (21:16)
[2022-02-05] VITALS (8 sets, daily range): BP systolic 95–160; BP diastolic 60–75
[2022-02-05] MEDS: ALBUTEROL/IPRATROPIUM 3 ML NEB NEB SCH ×6 (03:45→23:40)
[2022-02-05] MEDS: EMPAGLIFLOZIN 10 MG TABLET PO SCH (06:18)
[2022-02-05] MEDS: ACETAMINOPHEN/CODEINE 300MG - 30MG TAB PO PRN (06:19)
[2022-02-05] MEDS: INSULIN GLARGINE 100 UNITS/ML VIAL SQ SCH ×2 (08:30→16:38)
[2022-02-05] MEDS: INSULIN LISPRO 100 UNIT/1 ML 3ML VIAL SQ SCH ×7 (08:30→20:12)
[2022-02-05] MEDS: METHYLPREDNISOLONE SOD SUCC 40 MG/ML VIAL 1ML IV SCH (08:59)
[2022-02-05] MEDS: PREGABALIN 50 MG CAP PO SCH ×2 (09:00→16:28)
[2022-02-05] MEDS: ESCITALOPRAM OXALATE 10 MG TAB PO SCH (09:00)
[2022-02-05] MEDS: FUROSEMIDE INJ 10 MG/ML 4 ML VIAL IV SCH (09:01)
[2022-02-05] MEDS: METOPROLOL TARTRATE 25 MG TAB PO SCH ×2 (09:01→16:28)
[2022-02-05] MEDS: ASPIRIN 81 MG CHEW TAB PO SCH (09:10)
[2022-02-05] MEDS: POTASSIUM CHLORIDE 10MEQ EA PO SCH (09:10)
[2022-02-05] MEDS: AZITHROMYCIN 250 MG TAB PO SCH (09:10)
[2022-02-05] MEDS: MAGNESIUM HYDROXIDE 30 ML UDC PO PRN (16:23)
[2022-02-05] MEDS: PRAMIPEXOLE DIHYDROCHLORIDE 1 MG TAB PO SCH (20:08)
[2022-02-05] MEDS: ATORVASTATIN 20 MG TAB PO SCH (20:08)
[2022-02-05] MEDS: TRAZODONE HCL 50 MG TAB PO PRN (20:17)
[2022-02-06 00:20] VITALS: BP 145/68
[2022-02-06] MEDS: ALBUTEROL/IPRATROPIUM 3 ML NEB NEB SCH ×2 (03:30→07:00)
[2022-02-06 04:00] VITALS: BP 154/76
[2022-02-06] MEDS: EMPAGLIFLOZIN 10 MG TABLET PO SCH (05:54)
[2022-02-06] MEDS: ACETAMINOPHEN/CODEINE 300MG - 30MG TAB PO PRN (05:57)
[2022-02-06 08:00] VITALS: BP 142/73
[2022-02-06 08:23] VITALS: BP 154/76
[2022-02-06] MEDS: ESCITALOPRAM OXALATE 10 MG TAB PO SCH (09:48)
[2022-02-06] MEDS: INSULIN LISPRO 100 UNIT/1 ML 3ML VIAL SQ SCH (09:48)
[2022-02-06] MEDS: FUROSEMIDE INJ 10 MG/ML 4 ML VIAL IV SCH (09:48)
[2022-02-06] MEDS: PREGABALIN 50 MG CAP PO SCH (09:49)
[2022-02-06] MEDS: POTASSIUM CHLORIDE 10MEQ EA PO SCH (09:49)
[2022-02-06] MEDS: METOPROLOL TARTRATE 25 MG TAB PO SCH (09:50)
[2022-02-06] MEDS: ASPIRIN 81 MG CHEW TAB PO SCH (09:50)
[2022-02-06] MEDS: AZITHROMYCIN 250 MG TAB PO SCH (09:50)
[2022-02-06] MEDS ORDERED: INSULIN LISPRO 100 UNIT/1 ML 3ML VIAL SQ SCH (11:30)
[2022-02-06 11:52] VITALS: BP 151/75
[2022-02-06] MEDS ORDERED: INSULIN GLARGINE 100 UNITS/ML VIAL SQ SCH (16:30)
[2022-02-07] MEDS ORDERED: METHYLPREDNISOLONE SOD SUCC 40 MG/ML VIAL 1ML IV SCH (09:00)
== END 2022-02-06 12:35 | disposition home or self-care (01) | DRG 871 ==
LOC: ER 10:36 → ERHOLD 15:12 → ICU 16:30 → MED/SURG2 02-04 12:17
PROVIDERS: ADMIT Internal Medicine; ATTEND Internal Medicine
PROC: 3E03329 Introduction of Other Anti-infective into Peripheral Vein, Percutaneous Approach (ICD-10-PCS; principal; 2022-02-01)
PROC: 5A09357 Assistance with Respiratory Ventilation, Less than 24 Consecutive Hours, Continuous Positive Airway Pressure (ICD-10-PCS; 2022-02-01)
PROC: 5A09357 Assistance with Respiratory Ventilation, Less than 24 Consecutive Hours, Continuous Positive Airway Pressure (ICD-10-PCS; 2022-02-03)
PROC: 5A09357 Assistance with Respiratory Ventilation, Less than 24 Consecutive Hours, Continuous Positive Airway Pressure (ICD-10-PCS; 2022-02-04)
DX: A41.9 Sepsis, unspecified organism (principal); I21.A1 Myocardial infarction type 2; I50.33 Acute on chronic diastolic (congestive) heart failure; J96.21 Acute and chronic respiratory failure with hypoxia; J44.1 Chronic obstructive pulmonary disease with (acute) exacerbation; N39.0 Urinary tract infection, site not specified; E87.2 Acidosis; Z68.43 Body mass index [BMI] 50.0-59.9, adult; I13.0 Hypertensive heart and chronic kidney disease with heart failure and stage 1 through stage 4 chronic kidney disease, or unspecified chronic kidney disease; Z99.81 Dependence on supplemental oxygen; E11.22 Type 2 diabetes mellitus with diabetic chronic kidney disease; E11.42 Type 2 diabetes mellitus with diabetic polyneuropathy; E66.01 Morbid (severe) obesity due to excess calories; B96.1 Klebsiella pneumoniae [K. pneumoniae] as the cause of diseases classified elsewhere; E11.65 Type 2 diabetes mellitus with hyperglycemia; Z88.2 Allergy status to sulfonamides; Z88.8 Allergy status to other drugs, medicaments and biological substances; N18.9 Chronic kidney disease, unspecified; G47.33 Obstructive sleep apnea (adult) (pediatric); G25.81 Restless legs syndrome; Z98.49 Cataract extraction status, unspecified eye; E78.5 Hyperlipidemia, unspecified; W01.0XXA Fall on same level from slipping, tripping and stumbling without subsequent striking against object, initial encounter; Y92.019 Unspecified place in single-family (private) house as the place of occurrence of the external cause; I35.0 Nonrheumatic aortic (valve) stenosis; Z79.82 Long term (current) use of aspirin; Z20.822 Contact with and (suspected) exposure to COVID-19; Z79.4 Long term (current) use of insulin; Z79.84 Long term (current) use of oral hypoglycemic drugs
CPT/HCPCS: 36415; 70450; 71045; 80048; 80053; 81001; 82550; 82553; 82805; 82948; 83036; 83605; 83880; 84443; 84484; 85025; 85610; 85730; 87040; 87086; 87186; 93005; 93306; 94640; 94660; 94799; 96372; 97139; 99251; 99284; J0456; J0696; J1815; J1817; J1940; J2405; J2920; J2930; J7050

== ENCOUNTER → 2022-02-22 | Day surgery (SDC) | payer MEDICARE ==
[~2022-02-22] MED LIST changes: +FENTANYL CITRATE/PF 100MCG/2 ML INJ ONE; +HUMULIN R500 UNIT/2; +INSULIN REGULAR, HUMAN 100 UNIT/1 ML ONE; +MIDAZOLAM HCL 2 MG/2 ML VIAL ONE; +NOVOLIN N100 UNIT/1; +OR PHACO EYE KIT ONE; +PREOP PHACO EYE KIT ONE; +TRULICITY1.5 MG/0.5
[2022-02-22 13:30] VITALS: BP 116/63
== END | disposition home or self-care (01) ==
LOC: OR 09:07
PROVIDERS: ATTEND Ophthalmology
DX: H25.11 Age-related nuclear cataract, right eye (principal); G47.33 Obstructive sleep apnea (adult) (pediatric); E11.9 Type 2 diabetes mellitus without complications; I10 Essential (primary) hypertension; G62.9 Polyneuropathy, unspecified; F41.9 Anxiety disorder, unspecified; Z88.1 Allergy status to other antibiotic agents; Z01.812 Encounter for preprocedural laboratory examination; Z20.822 Contact with and (suspected) exposure to COVID-19; Z79.82 Long term (current) use of aspirin; Z79.84 Long term (current) use of oral hypoglycemic drugs; Z79.899 Other long term (current) drug therapy
CPT/HCPCS: 0223U; 36415 ×2; 66984; 82948; J2250; J3010; V2632; J1817

== ENCOUNTER 2022-02-23 17:18 | Emergency (ER) | payer MEDICARE ==
[~2022-02-23] VITALS: Ht 165.1 cm; Wt 151.0 kg
[~2022-02-23 17:18] MED LIST changes: -FENTANYL CITRATE/PF 100MCG/2 ML INJ ONE; -INSULIN REGULAR, HUMAN 100 UNIT/1 ML ONE; -MIDAZOLAM HCL 2 MG/2 ML VIAL ONE; -OR PHACO EYE KIT ONE; -PREOP PHACO EYE KIT ONE
== END 2022-02-23 22:26 | disposition home or self-care (01) ==
LOC: ER 18:07
DX: E11.40 Type 2 diabetes mellitus with diabetic neuropathy, unspecified (principal); I10 Essential (primary) hypertension; J44.9 Chronic obstructive pulmonary disease, unspecified; I50.9 Heart failure, unspecified; E78.5 Hyperlipidemia, unspecified; E66.01 Morbid (severe) obesity due to excess calories
CPT/HCPCS: 99282

== ENCOUNTER 2023-08-24 15:06 | Emergency (ER) | payer MEDICARE ==
[~2023-08-24] VITALS: Ht 165.1 cm; Wt 151.0 kg
[2023-08-24] MEDS ORDERED: SODIUM CHLORIDE 0.9% 1000ML 1,000 ML IV STA (15:32)
[2023-08-24 15:50] LABS: BASOPHILS # (AUTO) 0.1 (0.0-0.1); BASOPHILS % 1.2 % (0.0-1.0); EOSINOPHILS # (AUTO) 0.4 (0.0-0.4); EOSINOPHILS % 6.7 % (0.0-6.0); HEMATOCRIT 45.2 % (34.2-44.1); HEMOGLOBIN 14.7 g/dL (12.0-16.0); LYMPHOCYTES # (AUTO) 0.9 (1.0-3.2); LYMPHOCYTES % 14.9 % (18.0-39.1); MEAN CORPUSCULAR HEMOGLOBIN 32.2 pg (28-32); MEAN CORPUSCULAR HGB CONC 32.5 g/dL (31-35); MEAN CORPUSCULAR VOLUME 98.9 fL (81-99); MONOCYTES # (AUTO) 0.9 (0.2-0.8); MONOCYTES % 14.8 % (4.4-11.3); NEUTROPHILS # (AUTO) 3.7 (2.1-6.9); NEUTROPHILS % 62.1 % (38.7-80.0); PLATELET COUNT 135 x10e3/uL (140-360); RED BLOOD COUNT 4.57 x10e6/uL (3.6-5.1); RED CELL DISTRIBUTION WIDTH 16.2 % (11.7-14.4); WHITE BLOOD COUNT 5.96 x10e3/uL (4.8-10.8)
[2023-08-24 15:55] LABS: CLARITY,URINE TURBID (CLEAR); COLOR,URINE YELLOW (YELLOW); PH,URINE 5.5 (5 - 7)
[2023-08-24 15:56] LABS: BILIRUBIN,URINE SMALL (NEGATIVE); GLUCOSE, URINE 500 (NEGATIVE); KETONES,URINE NEGATIVE (NEGATIVE); LEUKOCYTE ESTERASE ,URINE LARGE (NEGATIVE); NITRITE,URINE NEGATIVE (NEGATIVE); PROTEIN,URINE DIPSTICK NEGATIVE (NEGATIVE); URINE UROBILINOGEN 1 mg/dL (0.2 - 1)
[2023-08-24 16:04] LABS: BACTERIA,URINE MODERATE /HPF; TRANSITIONAL EPI CELLS,URINE FEW; WBC,URINE (MAN) 21-50 /HPF (0-5); YEAST,URINE MANY
[2023-08-24 16:10] LABS: ALBUMIN/GLOBULIN RATIO 0.8 (0.8-2.0); ANION GAP 16.3 mmol/L (8-16); CALCIUM 9.4 mg/dL (8.4-10.2); CREATININE, SERUM 1.22 mg/dL (0.57-1.11); POTASSIUM 4.3 mmol/L (3.5-5.1); TOTAL PROTEIN 6.8 g/dL (6.5-8.1)
[2023-08-24] MEDS ORDERED: SODIUM CHLORIDE 0.9% 100 ML ONE (16:29)
[2023-08-24] MEDS ORDERED: IOPAMIDOL 370 MG/ML 100 ML INFUS..BTL INJ ONE (16:29)
[2023-08-24] MEDS ORDERED: CEFDINIR300 MG PO (17:42)
[2023-08-24 20:06] VITALS: BP 106/52; O2SAT 100
== END 2023-08-24 19:50 | disposition home or self-care (01) ==
LOC: ER 15:34
DX: R50.9 Fever, unspecified (principal); L03.818 Cellulitis of other sites; N39.0 Urinary tract infection, site not specified; I10 Essential (primary) hypertension; E11.40 Type 2 diabetes mellitus with diabetic neuropathy, unspecified; E78.5 Hyperlipidemia, unspecified; J44.9 Chronic obstructive pulmonary disease, unspecified; I50.9 Heart failure, unspecified; E66.01 Morbid (severe) obesity due to excess calories; E24.9 Cushing's syndrome, unspecified; R94.31 Abnormal electrocardiogram [ECG] [EKG]
CPT/HCPCS: 36415; 74174; 80053; 81001; 85025; 93005; 99284; J0696; J7030; J7050; Q9967

== ENCOUNTER 2024-03-16 18:51 | Inpatient (IN) | payer MEDICARE ==
[~2024-03-16] VITALS: Ht 165.1 cm; Wt 105.7 kg
[~2024-03-16 18:51] MED LIST changes: +CEFDINIR300 MG PO
[2024-03-16 19:07] VITALS: TEMP 98.4
[2024-03-16 19:29] LABS: BASOPHILS % 0.8 % (0.0-1.0); EOSINOPHILS # (AUTO) 0.2 (0.0-0.4); EOSINOPHILS % 5.6 % (0.0-6.0); HEMATOCRIT 35.8 % (34.2-44.1); HEMOGLOBIN 11.4 g/dL (12.0-16.0); LYMPHOCYTES # (AUTO) 0.9 (1.0-3.2); LYMPHOCYTES % 24.1 % (18.0-39.1); MEAN CORPUSCULAR HEMOGLOBIN 31.8 pg (28-32); MEAN CORPUSCULAR HGB CONC 31.8 g/dL (31-35); MONOCYTES # (AUTO) 0.7 (0.2-0.8); MONOCYTES % 17.5 % (4.4-11.3); NEUTROPHILS % 51.7 % (38.7-80.0); PLATELET COUNT 136 x10e3/uL (140-360); RED BLOOD COUNT 3.58 x10e6/uL (3.6-5.1); RED CELL DISTRIBUTION WIDTH 14.8 % (11.7-14.4); WHITE BLOOD COUNT 3.77 x10e3/uL (4.8-10.8)
[2024-03-16 19:44] LABS: ALBUMIN 2.8 g/dL (3.5-5.0); ALBUMIN/GLOBULIN RATIO 0.9 (0.8-2.0); ANION GAP 13.4 mmol/L (8-16); BILIRUBIN,TOTAL 1.2 mg/dL (0.2-1.2); CALCIUM 8.5 mg/dL (8.4-10.2); CREATININE, SERUM 1.24 mg/dL (0.57-1.11); POTASSIUM 4.4 mmol/L (3.5-5.1); TOTAL PROTEIN 5.9 g/dL (6.5-8.1)
[2024-03-16 19:50] LABS: TROPONIN I 0.013 ng/mL (0-0.300)
[2024-03-16 21:40] VITALS: PULSE 84; RESP 20
[2024-03-16 22:00] VITALS: BP 127/83; PULSE 87; RESP 18; TEMP 98.1; O2SAT 97
[2024-03-16] MEDS: FUROSEMIDE INJ 10 MG/ML 4 ML VIAL IV SCH (22:14)
[2024-03-16] MEDS: SODIUM CHLORIDE FLUSH 10 ML SYR INJ PRN (22:15)
[2024-03-16 23:58] VITALS: BP 137/47; PULSE 86; RESP 18; TEMP 97.7; O2SAT 99
[2024-03-17] VITALS (8 sets, daily range): BP systolic 105–139; BP diastolic 50–72; PULSE 80–87; RESP 17–18; TEMP 97.7–98.4; O2SAT 94–97
[2024-03-17 06:29] LABS: BASOPHILS % 0.7 % (0.0-1.0); EOSINOPHILS # (AUTO) 0.2 (0.0-0.4); EOSINOPHILS % 4.7 % (0.0-6.0); HEMATOCRIT 34.4 % (34.2-44.1); HEMOGLOBIN 11.4 g/dL (12.0-16.0); LYMPHOCYTES # (AUTO) 0.9 (1.0-3.2); LYMPHOCYTES % 23.3 % (18.0-39.1); MEAN CORPUSCULAR HEMOGLOBIN 32.8 pg (28-32); MEAN CORPUSCULAR HGB CONC 33.1 g/dL (31-35); MEAN CORPUSCULAR VOLUME 98.9 fL (81-99); MONOCYTES # (AUTO) 0.6 (0.2-0.8); MONOCYTES % 14.9 % (4.4-11.3); NEUTROPHILS # (AUTO) 2.3 (2.1-6.9); NEUTROPHILS % 56.2 % (38.7-80.0); PLATELET COUNT 140 x10e3/uL (140-360); RED BLOOD COUNT 3.48 x10e6/uL (3.6-5.1); RED CELL DISTRIBUTION WIDTH 14.7 % (11.7-14.4); WHITE BLOOD COUNT 4.04 x10e3/uL (4.8-10.8)
[2024-03-17 06:52] LABS: TROPONIN I 0.011 ng/mL (0-0.300)
[2024-03-17 07:08] LABS: ALBUMIN 2.6 g/dL (3.5-5.0); ALBUMIN/GLOBULIN RATIO 0.9 (0.8-2.0); ANION GAP 8.8 mmol/L (8-16); BILIRUBIN,TOTAL 1.1 mg/dL (0.2-1.2); CALCIUM 9.1 mg/dL (8.4-10.2); CREATININE, SERUM 1.05 mg/dL (0.57-1.11); POTASSIUM 3.8 mmol/L (3.5-5.1); TOTAL PROTEIN 5.6 g/dL (6.5-8.1)
[2024-03-17] MEDS ORDERED: DEXTROSE 50% SYRINGE 50 ML IV PRN (09:00)
[2024-03-17] MEDS ORDERED: ONDANSETRON HCL INJ 2MG/ML 2ML 2 MG/ML VIAL IV PRN (09:00)
[2024-03-17] MEDS: POTASSIUM CHLORIDE 10MEQ EA PO SCH (10:02)
[2024-03-17] MEDS: ASPIRIN 81 MG CHEW TAB PO SCH (10:03)
[2024-03-17] MEDS: METOPROLOL TARTRATE 25 MG TAB PO SCH (10:03)
[2024-03-17] MEDS: ESCITALOPRAM OXALATE 10 MG TAB PO SCH (10:03)
[2024-03-17] MEDS: INSULIN LISPRO 100 UNIT/1 ML 3ML VIAL SQ SCH (11:30)
[2024-03-17] MEDS: PREGABALIN 50 MG CAP PO SCH (16:41)
[2024-03-17 19:20] LABS: TROPONIN I 0.008 ng/mL (0-0.300)
[2024-03-17] MEDS: PRAMIPEXOLE DIHYDROCHLORIDE 0.25 MG TAB PO SCH (21:34)
[2024-03-17] MEDS: ATORVASTATIN 20 MG TAB PO SCH (21:34)
[2024-03-17] MEDS: TRAZODONE HCL 50 MG TAB PO PRN (21:34)
[2024-03-18] VITALS (9 sets, daily range): BP systolic 100–131; BP diastolic 47–50; PULSE 73–83; RESP 16–20; TEMP 97.7–98.7; O2SAT 93–97
[2024-03-18 05:29] LABS: BASOPHILS % 0.5 % (0.0-1.0); EOSINOPHILS # (AUTO) 0.2 (0.0-0.4); EOSINOPHILS % 4.4 % (0.0-6.0); HEMATOCRIT 34.2 % (34.2-44.1); HEMOGLOBIN 11.1 g/dL (12.0-16.0); LYMPHOCYTES # (AUTO) 1.2 (1.0-3.2); LYMPHOCYTES % 22.2 % (18.0-39.1); MEAN CORPUSCULAR HEMOGLOBIN 32.3 pg (28-32); MEAN CORPUSCULAR HGB CONC 32.5 g/dL (31-35); MEAN CORPUSCULAR VOLUME 99.4 fL (81-99); MONOCYTES # (AUTO) 0.9 (0.2-0.8); MONOCYTES % 15.5 % (4.4-11.3); NEUTROPHILS # (AUTO) 3.2 (2.1-6.9); NEUTROPHILS % 57.2 % (38.7-80.0); PLATELET COUNT 144 x10e3/uL (140-360); RED BLOOD COUNT 3.44 x10e6/uL (3.6-5.1); RED CELL DISTRIBUTION WIDTH 14.9 % (11.7-14.4)
[2024-03-18 05:58] LABS: ANION GAP 12.7 mmol/L (8-16); CALCIUM 8.4 mg/dL (8.4-10.2); CREATININE, SERUM 1.08 mg/dL (0.57-1.11); POTASSIUM 3.7 mmol/L (3.5-5.1)
[2024-03-18 06:27] LABS: MAGNESIUM 1.8 MG/DL (1.3-2.1); PHOSPHORUS 3.4 MG/DL (2.3-4.7)
[2024-03-18] MEDS: MAGNESIUM OXIDE 400 MG TAB PO SCH (09:35)
[2024-03-18 09:37] LABS: TROPONIN I 0.001 ng/mL (0-0.300)
[2024-03-18 09:50] LABS: THYROID STIMULATING HORMONE 6.011 uIU/mL (0.350-4.940)
[2024-03-19] VITALS: BP 134/55; PULSE 82; RESP 20; TEMP 99.3; O2SAT 93
[2024-03-19 06:04] VITALS: BP 142/64; PULSE 78; RESP 19; TEMP 99.1; O2SAT 96
[2024-03-19 06:34] LABS: BASOPHILS % 0.8 % (0.0-1.0); EOSINOPHILS # (AUTO) 0.2 (0.0-0.4); EOSINOPHILS % 4.6 % (0.0-6.0); HEMATOCRIT 34.3 % (34.2-44.1); HEMOGLOBIN 11.2 g/dL (12.0-16.0); LYMPHOCYTES # (AUTO) 1.1 (1.0-3.2); LYMPHOCYTES % 22.2 % (18.0-39.1); MEAN CORPUSCULAR HEMOGLOBIN 32.1 pg (28-32); MEAN CORPUSCULAR HGB CONC 32.7 g/dL (31-35); MEAN CORPUSCULAR VOLUME 98.3 fL (81-99); MONOCYTES # (AUTO) 0.7 (0.2-0.8); MONOCYTES % 14.5 % (4.4-11.3); NEUTROPHILS # (AUTO) 2.9 (2.1-6.9); NEUTROPHILS % 57.5 % (38.7-80.0); PLATELET COUNT 139 x10e3/uL (140-360); RED BLOOD COUNT 3.49 x10e6/uL (3.6-5.1); RED CELL DISTRIBUTION WIDTH 14.7 % (11.7-14.4); WHITE BLOOD COUNT 5.05 x10e3/uL (4.8-10.8)
[2024-03-19 06:57] VITALS: PULSE 78; RESP 18; O2SAT 96
[2024-03-19 07:15] LABS: ANION GAP 9.5 mmol/L (8-16); CALCIUM 8.8 mg/dL (8.4-10.2); CREATININE, SERUM 1.01 mg/dL (0.57-1.11); POTASSIUM 3.5 mmol/L (3.5-5.1)
[2024-03-19] MEDS: ACETAMINOPHEN 325 MG TAB PO PRN (07:19)
[2024-03-19 08:00] VITALS: BP 137/53; PULSE 76; RESP 19; TEMP 98.4; O2SAT 97
[2024-03-19 09:15] VITALS: BP 137/53; PULSE 76; RESP 19; TEMP 98.4; O2SAT 97
[2024-03-19] MEDS ORDERED: SODIUM CHLORIDE 0.9% 1000ML 1,000 ML ONE (13:38)
== END 2024-03-19 11:35 | disposition home or self-care (01) | DRG 291 ==
LOC: ER 18:57 → ERHOLD 20:44 → MED/SURG2 21:54 → OBSVTOIN 03-17 09:39
PROVIDERS: ADMIT Internal Medicine; ATTEND Internal Medicine
DX: I11.0 Hypertensive heart disease with heart failure (principal); I50.43 Acute on chronic combined systolic (congestive) and diastolic (congestive) heart failure; L03.116 Cellulitis of left lower limb; L03.115 Cellulitis of right lower limb; E24.9 Cushing's syndrome, unspecified; E11.42 Type 2 diabetes mellitus with diabetic polyneuropathy; E78.5 Hyperlipidemia, unspecified; J44.9 Chronic obstructive pulmonary disease, unspecified; I87.2 Venous insufficiency (chronic) (peripheral); E66.01 Morbid (severe) obesity due to excess calories; Z68.38 Body mass index [BMI] 38.0-38.9, adult; Z11.52 Encounter for screening for COVID-19; Z79.4 Long term (current) use of insulin; Z79.82 Long term (current) use of aspirin; Z79.85 Long-term (current) use of injectable non-insulin antidiabetic drugs; Z79.84 Long term (current) use of oral hypoglycemic drugs; Z88.2 Allergy status to sulfonamides; Z88.1 Allergy status to other antibiotic agents
CPT/HCPCS: 36415; 71045; 71250; 80048; 80053; 82550; 82948; 83036; 83690; 83735; 83880; 84100; 84443; 84484; 85025; 93005; 93306; 93970; 94799; 99284; G0378; J0690; J1940; J7030; U0002

== ENCOUNTER 2024-03-21 13:01 | Emergency (ER) | payer MEDICARE ==
[~2024-03-21] VITALS: Ht 165.1 cm; Wt 105.7 kg
[2024-03-21 13:01] VITALS: PULSE 68; RESP 20; TEMP 98.6
[2024-03-21 13:45] LABS: BASOPHILS % 0.8 % (0.0-1.0); EOSINOPHILS # (AUTO) 0.3 (0.0-0.4); EOSINOPHILS % 5.9 % (0.0-6.0); HEMATOCRIT 34.7 % (34.2-44.1); HEMOGLOBIN 11.1 g/dL (12.0-16.0); LYMPHOCYTES % 21.4 % (18.0-39.1); MEAN CORPUSCULAR HEMOGLOBIN 32.5 pg (28-32); MEAN CORPUSCULAR VOLUME 101.5 fL (81-99); MONOCYTES # (AUTO) 0.7 (0.2-0.8); MONOCYTES % 14.3 % (4.4-11.3); NEUTROPHILS # (AUTO) 2.7 (2.1-6.9); NEUTROPHILS % 57.4 % (38.7-80.0); PLATELET COUNT 158 x10e3/uL (140-360); RED BLOOD COUNT 3.42 x10e6/uL (3.6-5.1); RED CELL DISTRIBUTION WIDTH 14.6 % (11.7-14.4); WHITE BLOOD COUNT 4.77 x10e3/uL (4.8-10.8)
[2024-03-21 14:04] LABS: ALBUMIN 2.7 g/dL (3.5-5.0); ALBUMIN/GLOBULIN RATIO 0.8 (0.8-2.0); ALKALINE PHOSPHATASE 82 IU/L (40-150); ANION GAP 12.9 mmol/L (8-16); BILIRUBIN,TOTAL 0.9 mg/dL (0.2-1.2); BLOOD UREA NITROGEN 26 mg/dL (7-26); BUN/CREATININE RATIO 21 (6-25); CALCIUM 8.4 mg/dL (8.4-10.2); CARBON DIOXIDE 28 mmol/L (22-29); CHLORIDE 102 mmol/L (98-107); CREATININE, SERUM 1.24 mg/dL (0.57-1.11); EST GLOMERULAR FILTRATION RATE 49 ML/MIN (>=60); GLUCOSE 89 mg/dL (74-118); POTASSIUM 3.9 mmol/L (3.5-5.1); SODIUM 139 mmol/L (136-145); TOTAL PROTEIN 6.1 g/dL (6.5-8.1)
[2024-03-21 14:05] LABS: ALANINE AMINOTRANSFERASE < 6 IU/L (0-55)
[2024-03-21 15:52] VITALS: BP 111/89; PULSE 69; RESP 18; TEMP 98.6; O2SAT 96
== END 2024-03-21 16:00 | disposition home or self-care (01) ==
LOC: ER 13:06
DX: I95.2 Hypotension due to drugs (principal); I10 Essential (primary) hypertension; E11.9 Type 2 diabetes mellitus without complications; E78.5 Hyperlipidemia, unspecified; J44.9 Chronic obstructive pulmonary disease, unspecified; I50.9 Heart failure, unspecified; E24.9 Cushing's syndrome, unspecified; E66.01 Morbid (severe) obesity due to excess calories
CPT/HCPCS: 36415; 80053; 84484; 85025; 99284